=== PATIENT | female | born 1990 | race Caucasian/White ===

== ENCOUNTER 2018-01-31 10:00 | Day surgery (SDC) | payer OTHER ==
[~2018-01-31] VITALS: Ht 157.5 cm; Wt 48.5 kg
[~2018-01-31 10:00] MED LIST: AMBIEN CR12.5 MG; PRENATAL + DHA1 EAC1
== END 2018-01-31 16:00 | disposition home or self-care (01) ==
LOC: CIR.AMB 10:00 → EDSTATUS 11:00 → SEC-K 11:17 → O/R 11:17 → CIR.AMB 16:00 → O/R 17:00
DX: O03.4 Incomplete spontaneous abortion without complication (principal)